=== PATIENT | female | born 1995 | race Hispanic/Latino ===

== ENCOUNTER 2021-09-14 20:42 | Emergency (ER) | payer OTHER, BC ==
[~2021-09-14] VITALS: Ht 165.1 cm; Wt 61.8 kg
[2021-09-14] MEDS ORDERED: AMITRIPTYLINE H50 MG PO (21:11)
[2021-09-14] MEDS ORDERED: SERTRALINE HCL50 MG PO (21:12)
== END 2021-09-14 23:05 | disposition home or self-care (01) ==
LOC: ED 20:42
DX: M62.82 Rhabdomyolysis (principal); Z79.899 Other long term (current) drug therapy
CPT/HCPCS: 36415; 73560; 80048; 81001; 82553; 84703; 85025; 99283-25; J7030

== ENCOUNTER 2021-09-26 21:22 | Emergency (ER) | payer OTHER, BC ==
[~2021-09-26] VITALS: Ht 165.1 cm; Wt 61.7 kg
[~2021-09-26 21:22] MED LIST: AMITRIPTYLINE H50 MG PO; SERTRALINE HCL50 MG PO
--- OUTSIDE RECORDS SUMMARY | 2021-09-26 21:30 | XMS ---
PreManage Notification: JARED ROY [employer] Events No recent Security Events currently on file CRITERIA MET - [facility] - 2 Visits in 30 Days CARE PROVIDERS MAURISIO GRANDE [facility] Attendant: Medical Current PHONE: Unknown SALO LOPEZ Current PHONE: Unknown GRIS DONAHUE Nurse Practitioner: Women's Health 07/07/2020-Current PHONE: [phone] SALO MCNULTY [facility] Attendant: Medical Current PHONE: Unknown Saida has no Care Guidelines for this patient. Mihaela VISIT COUNT (12 MO.) 2 JOSE LUIS [facility] TOTAL 2 NOTE: Visits indicate total known visits. ED/UCC VISIT TRACKING (12 MO.) 09/26/2021 21:24 [facility] TYPE: Emergency COMPLAINT: - KNEE PAIN/SWELLING, DIFFICULTY WALKING 09/14/2021 20:44 [facility] TYPE: Emergency COMPLAINT: - R KNEE PAIN/NON INJURY DIAGNOSES: - Other long term care social worker (current) drug therapy - Pain in right knee - Rhabdomyolysis INPATIENT VISIT TRACKING (12 MO.) No inpatient visits to display in this time frame [email or web address]
[2021-09-26] MEDS ORDERED: PREDNISONE20 MG PO (21:44)
[2021-09-26] MEDS ORDERED: MONTELUKAST SOD10 MG PO (21:44)
== END 2021-09-27 00:31 | disposition home or self-care (01) ==
LOC: ED 21:22
DX: M25.562 Pain in left knee (principal); M25.561 Pain in right knee; G43.909 Migraine, unspecified, not intractable, without status migrainosus; Z79.52 Long term (current) use of systemic steroids; Z79.899 Other long term (current) drug therapy
CPT/HCPCS: 36415; 73560; 80048; 82553; 83735; 84443; 84550; 85025; 85651; 86140; 99283-25

== ENCOUNTER 2025-02-09 18:59 | Emergency (ER) | payer OTHER, BC ==
[~2025-02-09] VITALS: Ht 165.1 cm; Wt 67.0 kg
[~2025-02-09 18:59] MED LIST changes: +MONTELUKAST SOD10 MG PO; +PREDNISONE20 MG PO
[2025-02-09 19:34] LABS: BLOOD/HGB, URINE NEGATIVE (Negative); KETONE, URINE NEGATIVE (Negative); LEUK ESTERASE, URINE NEGATIVE (negative); NITRITE, URINE NEGATIVE (negative)
[2025-02-09] MEDS ORDERED: LACTATED RINGER'S 1,000 ML IV ONE (20:45)
[2025-02-09] MEDS ORDERED: FAMOTIDINE 20 MG/ 2 ML VIAL IV ONE (20:45)
[2025-02-09] MEDS ORDERED: KETOROLAC TROMETHAMINE 30 MG/ML VIAL IV ONE (20:45)
[2025-02-09 21:24] LABS: BASOPHILS 0.4 % (0.1-1.2); EOSINOPHILS 4.1 % (0.7-5.8); LYMPHOCYTES 40.0 % (19.3-51.7); MCH 30.3 PG (25.6-32.2); MCHC 32.9 g/dL (32.2-35.5); MCV 92.1 fL (79.4-94.8); MONOCYTES 9.7 % (4.7-12.5); NEUTROPHILS 45.6 % (34.0-71.1); RBC 3.93 M/uL (3.93-5.22)
[2025-02-09 21:39] LABS: ALT (SGPT) 45.0 U/L (14-59); AST (SGOT) 22.0 U/L (15-37); GLOMERULAR FILTRATION RATE,EST 121.0 mL/min (>60); PROTEIN, TOTAL 7.4 g/dL (6.4-8.2); UREA NITROGEN 8.0 mg/dL (7-18)
[2025-02-09] MEDS ORDERED: KLOR-CON M2020 MEQ PO (22:28)
[2025-02-09] MEDS ORDERED: POTASSIUM CHLORIDE 10 MEQ TABCR PO ONE (22:30)
[2025-02-09 22:35] VITALS: BP 106/93
== END 2025-02-09 22:36 | disposition home or self-care (01) ==
LOC: ED 18:59
PROVIDERS: Internal Medicine
DX: N92.6 Irregular menstruation, unspecified (principal); G43.909 Migraine, unspecified, not intractable, without status migrainosus
CPT/HCPCS: 36415; 76705; 76830; 76856; 80053; 81003; 83690; 84703; 85025; 96374; 96375; 99284-25; A9270; J1885; J7121